=== PATIENT | male | born 1985 | race Caucasian/White ===

== ENCOUNTER 2022-04-20 01:40 | Emergency (ER) | payer OTHER ==
[~2022-04-20] VITALS: Ht 167.6 cm; Wt 79.0 kg
[2022-04-20] MEDS ORDERED: IBUP800T26 PO (05:11)
[2022-04-20 05:35] VITALS: BP 110/68
== END 2022-04-20 05:47 | disposition home or self-care (01) ==
LOC: ER 01:40
DX: S93.492A Sprain of other ligament of left ankle, initial encounter (principal); W17.89XA Other fall from one level to another, initial encounter; Y93.89 Activity, other specified; Y92.89 Other specified places as the place of occurrence of the external cause; Y99.8 Other external cause status
CPT/HCPCS: 73610; 73630